=== PATIENT | female | born 1970 | race Two or more races ===

== ENCOUNTER 2017-02-17 07:37 | Observation (INO) | payer OTHER, SELFPAY ==
--- NOTE | ~2017-02-17 | TH ---
Unit #: [id number] #: [id number] Patient: HOWIE BOTELLO [id number] [facility]. [address] [address] [id number] I MR#: [id number] NAME: HOWIE BOTELLO : 1970 SEX: F STUDY DATE/TIME: 02/17/2017 UNIT: C3A PCU ROOM: 310 STUDY DESCRIPTION: Exercise stress test - Nuclear Attending Physician: Sabrina Cordero M.D. Referring Physician: Denzel Caldera M.D. Primary Care Physician: No Primary Care Physician CARDIOLOGY REPORT PROCEDURE PERFORMED Exercise Cardiolite stress test - Nuclear portion. PROCEDURE Using technetium 99m-labeled Cardiolite, rest and stress SPECT images were obtained. Multiple SPECT images were obtained in various views, including horizontal and vertical long axis and short axis views of the left ventricle. Images were obtained by gated SPECT method. The patient was administered 11.63 mCi of Cardiolite at rest. The patient was administered 35.8 mCi of Cardiolite at peak exercise. Total exercise time is 7 minutes and 20 seconds of modified Phil protocol. On the stress images, there is a large area of severely decreased tracer uptake activity involving the entire anterior, anteroseptal and anteroapical wall of the left ventricle. The rest images show a smaller area of moderately decreased tracer uptake activity involving the anterior and the anteroapical wall. Comparing the rest and stress images, there is suspicion for a medium to large sized area of myocardial infarction involving the anterior, anteroapical and anteroseptal wall with significant juanito-infarct ischemia. The left ventricular ejection fraction is calculated to be 61%. There is anterior wall hypokinesis seen. CONCLUSION 1. Suspicion for a medium sized area of anterior, anteroapical and anteroseptal myocardial infarction with significant juanito-infarct ischemia. 2. The left ventricular ejection fraction is calculated to be 61%. 3. There is anterior wall hypokinesis seen. 4. Abnormal exercise Cardiolite stress test highly suspicious for coronary artery disease. Clinical correlation is requested. Dictated by... Raul Marr/magda TD: 02/17/2017 13:44 JOB #: [id number] Unit #: [id number] #: [id number] Patient: HOWIE BOTELLO CARDIOLOGY REPORT Page 1 of 1 X Sabrina Cordero MD <ELECTRONICALLY SIGNED> 04/01/17 1427 CARDIOLOGY REPORT
--- NOTE | ~2017-02-17 | ST ---
Unit #: [id number] #: [id number] Patient: HOWIE BOTELLO [id number] [address] [address] [id number] O MR#: [id number] NAME: HOWIE BOTELLO : 1970 SEX: F STUDY DATE/TIME: 02/17/2017 UNIT: [facility] ROOM: STUDY DESCRIPTION: Exercise stress test Attending Physician: Denzel Caldera M.D. Referring Physician: Denzel Caldera M.D. Primary Care Physician: Denzel Caldera M.D. CARDIOLOGY REPORT STUDY PERFORMED EKG portion of Cardiolite exercise stress test. REASON FOR STUDY Intermittent chest pain with shortness of air. PROCEDURE Baseline EKG is sinus rhythm with a ventricular rate of 72 and nonspecific T wave abnormalities in V1. The patient exercised on the treadmill according to the Phil protocol for 7 minutes and 20 seconds achieving a work level of 8.6 METS. Resting heart rate was 77. Maximal heart rate was 153, representing 88% of max predicted heart rate. The patient's symptom during the test was fatigue. No arrhythmias were noted. There was some flattening of the T wave in AVL. The test had to be modified around the 5-minute marcus due to extreme fatigue. IMPRESSION 1. This is a negative test. 2. The patient had no complaints of chest pain, palpitations or dizziness. Had increased shortness of breath and fatigue. 3. No arrhythmias; some nonspecific T wave changes. 4. Please correlate with Cardiolite imaging. Dictated by... Luda Finney APRN for Raul Marr TD: 02/17/2017 10:59 JOB #: [id number] Unit #: [id number] #: [id number] Patient: HOWIE BOTELLO CARDIOLOGY REPORT Page 1 of 1 X CARDIOLOGY REPORT
--- NOTE | ~2017-02-17 | HP ---
Unit #: [id number] #: [id number] Patient: HOWIE BOTELLO [id number] [address] [address] [id number] I MR#: [id number] NAME: HOWIE BOTELLO ROOM: 310 Age: 46 Sex: F Admission Date: 02/17/2017 : 1970 Attending Physician: Sabrina Cordero M.D. Referring Physician: Denzel Caldera M.D. Primary Care Physician: No Primary Care Physician HISTORY AND PHYSICAL REASON FOR ADMISSION Abnormal stress test. HISTORY OF PRESENT ILLNESS This is a 46-year-old [place] female who speaks limited Divehi. History obtained through her son and assistant professor of nursing services. She has a prior history of hypertension, high cholesterol, type 2 diabetes, and an anterior STEMI in February 2016. At that time, she had a cardiac cath which showed LAD mid 100% occluded, left circumflex diffuse irregularities, RCA diffuse irregularities, and PDA was small with diffuse disease. She underwent a PCI and Synergy drug-eluting stent to her LAD at that time. She also has a prior history of ischemia cardiomyopathy with a left ventricular ejection fraction of 40% per echo done February 27, 2016. She was evaluated at [facility] January 27 for chest pressure and shortness of air that occurred while gardening. At that visit, her EKG showed no ischemic changes and her troponins were normal. She elected to be discharged home and proceed with outpatient testing. Today, she presented to [facility] for a cardiac exercise stress test. She became fatigued during the test but had no chest pain, pressure or tightness. Cardiolite imaging was markedly abnormal. She was admitted with plans to further evaluate with a left heart catheterization. She currently denies chest pain, shortness of air or palpitations. PAST MEDICAL HISTORY 1. Diabetes mellitus type 2. 2. Hypertension. 3. Hyperlipidemia. 4. History of anterior STEMI February 27, 2016. 5. Cardiac cath 02/2016 showed left main normal, LAD mid 100%, left circumflex diffuse irregularities, right coronary artery diffuse irregularities and PDA small and diffusely diseased, status post PCI and drug-eluting stent to LAD. 6. History of ischemic cardiomyopathy with EF 40% per echo February 27, 2016. 7. Echocardiogram 01/28/2017 showed LVEF 70% and trace mitral regurg. PAST SURGICAL HISTORY Cardiac catheterization, PCI and stents as noted above. HOME MEDICATIONS 1. Effient 10 mg p.o. daily. 2. Lisinopril 10 mg p.o. twice a day. 3. Coreg 6.25 mg twice a day. Unit #: [id number] #: [id number] Patient: HOWIE BOTELLO 4. Aspirin 81 mg once a day. 5. Atorvastatin 40 mg every hour sleep. 6. Metformin 500 mg twice a day. 7. Nitroglycerin sublingual 0.4 mg as needed for chest pain. ALLERGIES No known drug allergies. SOCIAL HISTORY This is a [place] woman who is here with her son who speaks Divehi. She denies a history of smoking. Denies alcohol or illicit drug use. FAMILY HISTORY Denies a family history of premature coronary artery disease. REVIEW OF SYSTEMS Ten point review of systems is negative except for details as noted above. PHYSICAL EXAMINATION VITAL SIGNS: Not available at this time. GENERAL: Alert and oriented 46-year-old female resting in bed, in no acute distress. SKIN: Warm and dry. NECK: Supple. No jugular venous distention. No hepatojugular reflex. Normal carotid upstrokes. No carotid bruits auscultation. HEART: S1 and S2. Regular rate and rhythm. No murmurs, rubs or gallops. LUNGS: Bilateral breath sounds are clear. No rales, rhonchi or wheezes. ABDOMEN: Soft, nontender, nondistended. Positive bowel sounds. No ascites noted. EXTREMITIES: Bilateral lower extremities have no pretibial pitting edema. DP and PT pulses are 2+. Capillary refill is less than two seconds. DIAGNOSTIC STUDIES LABORATORY: CMP and CBC are pending. BMP done 01/28/2017 showed a sodium of 136, potassium 3.6, BUN 6, creatinine 0.63, glucose 163. CBC done January 28, 2017, showed hemoglobin 10.7 and hematocrit 32.6. CARDIOVASCULAR: EKG with normal sinus rhythm and nonspecific T wave abnormalities. Cardiolite imaging - please see dictated report. ASSESSMENT 1. Mild anterior apical myocardial infarction. 2. History of ischemic cardiomyopathy with ejection fraction 40% per echo 02/27/2016 and now left ventricular ejection fraction 70% per echo 01/28/2017. 3. Two vessel coronary artery disease, status post percutaneous coronary intervention/drug-eluting stent to left anterior descending in February 2016. 4. Diabetes mellitus. 5. Hypertension. 6. Hyperlipidemia. 7. Abnormal Cardiolite stress test. Unit #: [id number] #: [id number] Patient: HOWIE BOTELLO PLAN 1. Proceed with cardiac cath. 2. Continue beta yuly with Coreg 1.5 mg p.o. twice a day. 3. Increase lisinopril to 40 mg p.o. every hour of sleep. 4. Effient 10 mg p.o. daily. 5. Add nitrate with Imdur 30 mg p.o. daily. 6. Continue aspirin. 7. Add Lasix 40 mg p.o. daily. 8. Lipitor 80 mg p.o. daily. 9. NPO per cardiac cath. 10. CBC, BMP, PT, INR, PTT and troponin. 11. The patient is a full code. 12. Pre-cath orders with consent for left heart cath. Dictated by Luda Finney APRN for Raul Sorto/ramin TD: 02/21/2017 10:30 JOB #: [id number] HISTORY AND PHYSICAL Page 1 of 1 X X HISTORY AND PHYSICAL
--- NOTE | ~2017-02-17 | DS ---
Unit #: [id number] #: [id number] Patient: HOWIE BOTELLO [id number] [address] [place], [place] [address] [id number] I MR#: [id number] NAME: HOWIE BOTELLO ROOM: 310 Age: 46 Sex: F Admission Date: 02/17/2017 : 1970 Discharge Date: 02/18/2017 Attending Physician: Sabrina Cordero M.D. Referring Physician: Denzel Caldera M.D. Primary Care Physician: No Primary Care Physician DISCHARGE SUMMARY HOSPITAL COURSE Ms. Botello is a 46-year-old female of [place] origin, who is known to have hypertension and diabetes mellitus. She had suffered an acute anterior wall myocardial infarction in 02/2016 when she was treated at [facility] with an emergent angioplasty with stent insertion on the mid LAD. Over the last few months she had complained of chest tightness and shortness of breath on exertion and at rest. An exercise Cardiolite scan was performed yesterday morning at this hospital, which revealed a large area of anterior wall juanito-infarction ischemia and inferior wall ischemia. She was admitted to the hospital for cardiac catheterization. The patient was taken to the cardiac catheterization lab, where catheterization revealed left ventricular systolic function to be normal, left main coronary artery was normal, left circumflex coronary artery was essentially normal, first and second marginal branches were normal, third marginal branch showed diffuse irregularity. Left anterior descending artery showed 99% in-stent stenosis and the first diagonal branch of the LAD was caught in stent longterm with about 90% stenosis at its ostium, with the distal vessel being normal. LAD also had another 70% stenosis in the distal one-third. Right coronary artery showed 30%-40% stenosis at the junction of the proximal third and distal two-thirds. The patient was started on long-acting nitrates. The dose of Lipitor and carvedilol was increased and the patient is being discharged home today. She will be brought back on an elective basis in the middle of the week and a PCI with stent insertion would be performed on the mid LAD stenosis, possibly on the distal LAD also, and first diagonal branch of the LAD would be dilated if possible with a balloon only. This was discussed at length with the patient's and the patient and they are agreeable to this approach. She is being discharged home on the following medicines. DISCHARGE MEDICATIONS 1. Carvedilol 6.25 mg, 2 tablets b.i.d. or 12.5 mg b.i.d. 2. Atorvastatin 40 mg, 2 tablets daily at bedtime or 80 mg p.o. at bedtime. 3. Lisinopril 10 mg tablets, 2 tablets b.i.d., or 40 mg at bedtime. 4. Metformin 500 mg b.i.d. 5. Januvia 100 mg p.o. daily. 6. P.r.n. nitroglycerin. 7. Ferrous sulfate 325 mg daily. 8. Aspirin 81 mg daily. 9. Effient 10 mg daily. 10. Imdur 30 mg daily. Unit #: [id number] #: [id number] Patient: HOWIE BOTELLO 11. Nitrostat 0.4 mg p.r.n. chest pain. 12. Vitamin D 1000 units daily. 13. Vitamin B12 500 mcg daily. PLAN The patient will be readmitted on 02/22/2017 for PCI with stent insertion on the left anterior descending artery and possible diagonal branch of the LAD. DIAGNOSES 1. Rest and exertional angina pectoris. 2. In-stent stenosis LAD. 3. Three vessel coronary artery disease. 4. Diabetes mellitus, noninsulin dependent. 5. Old anterior wall myocardial infarction in 2016 with emergent PCI with stent insertion on the mid LAD, performed at [facility]. Dictated by... Raul Sorto TD: 02/20/2017 11:59 JOB #: [id number] DISCHARGE SUMMARY Page 1 of 1 X Anthony Menard MD X DISCHARGE SUMMARY
[2017-02-17] MEDS ORDERED: VITAMIN D1000 UNIT PO (13:53)
[2017-02-17] MEDS ORDERED: ST. JOSEPH ASPI81 M2 PO (13:53)
[2017-02-17] MEDS ORDERED: FERROUS SULFATE PO (13:54)
[2017-02-17] MEDS ORDERED: ATORVASTATIN CA10 MG PO (13:56)
[2017-02-17] MEDS ORDERED: LYRICA PO (13:56)
[2017-02-17] MEDS ORDERED: LISINOPRIL10 MG PO (13:57)
[2017-02-17] MEDS ORDERED: JANUVIA100 MG PO (13:59)
[2017-02-17] MEDS ORDERED: METFORMIN HCL500 M4 PO (13:59)
[2017-02-17] MEDS ORDERED: EFFIENT10 MG PO (14:00)
[2017-02-17] MEDS ORDERED: NITROSTAT0.4 MG SL (14:01)
[2017-02-17] MEDS ORDERED: COREG6.25 MG PO (14:02)
[2017-02-17] MEDS ORDERED: B-12500 MCG PO (14:02)
[2017-02-17 15:57] LABS: BASOPHIL% 0.4 % (0-2.5); EOSINOPHIL% 0.6 % (0.0-7.0); HEMATOCRIT 36.5 % (35.0-45.0); HEMOGLOBIN 11.7 gm/dL (12.0-16.0); LYMPHOCYTE# 1.8 X10e3 (1.0-3.5); LYMPHOCYTE% 24.2 % (17.0-45.0); MEAN CELL VOLUME 78.7 FL (83-96); MEAN CORPUSCULAR HEMOGLOBIN 25.3 PG (28-34); MEAN CORPUSCULAR HGB CONC 32.2 g/dL (30-36); MEAN PLATELET VOLUME 8.5 FL (6.5-11.5); MONOCYTE# 0.4 X10e3 (0-1.0); MONOCYTE% 5.1 % (3.0-12.0); NEUTROPHIL# 5.2 X10e3 (1.5-7.1); NEUTROPHIL% 69.7 % (40-75); PLATELET COUNT 214 X10e3 (140-420); RED BLOOD COUNT 4.64 X10e (3.90-5.30); RED CELL DISTRIBUTION WIDTH 16.7 % (11.0-15.5); WHITE BLOOD COUNT 7.4 X10e3 (4.0-10.5)
[2017-02-17 16:03] LABS: PROTHROMBIN TIME (PATIENT) 10.7 SECONDS (9.6-11.5)
[2017-02-17 16:12] LABS: DIFF IND NO
[2017-02-17 16:15] LABS: PARTIAL THROMBOPLASTIN TIME 30.1 SECONDS (23.5-31.3); PROTHROMBIN TIME (PATIENT) 10.8 SECONDS (9.6-11.5)
[2017-02-17 16:22] LABS: CALCIUM SERUM 8.7 mg/dL (8.4-10.2); CREATININE SERUM 0.5 mg/dL (0.6-1.4); GLOM FILT RATE Estimated 115.3 mL/min (>60); POTASSIUM 3.7 mmol/L (3.5-5.1)
[2017-02-18 06:25] LABS: HEMATOCRIT 32.8 % (35.0-45.0); HEMOGLOBIN 10.7 gm/dL (12.0-16.0); MEAN CELL VOLUME 78.8 FL (83-96); MEAN CORPUSCULAR HEMOGLOBIN 25.7 PG (28-34); MEAN CORPUSCULAR HGB CONC 32.6 g/dL (30-36); MEAN PLATELET VOLUME 8.6 FL (6.5-11.5); RED BLOOD COUNT 4.16 X10e (3.90-5.30); RED CELL DISTRIBUTION WIDTH 16.9 % (11.0-15.5); WHITE BLOOD COUNT 6.7 X10e3 (4.0-10.5)
[2017-02-18 06:56] LABS: CALCIUM SERUM 8.3 mg/dL (8.4-10.2); CREATININE SERUM 0.4 mg/dL (0.6-1.4); GLOM FILT RATE Estimated 124.1 mL/min (>60); POTASSIUM 3.5 mmol/L (3.5-5.1)
[2017-02-18] MEDS ORDERED: IMDUR-ER30 M1 DOB (10:16)
[2017-02-18] MEDS ORDERED: IMDUR-ER30 M2 PO (10:37)
[2017-02-18] MEDS ORDERED: COREG6.25 MG PO (10:38)
[2017-02-18] MEDS ORDERED: ATORVASTATIN CA40 MG PO (10:39)
[2017-02-18] MEDS ORDERED: PRINIVIL10 MG PO (10:40)
== END 2017-02-18 11:20 | disposition home or self-care (01) | DRG 316 ==
LOC: CNUC 07:37 → CEDOF 12:30 → C3A PCU 12:35 → CNUC 12:35 → C3A PCU 13:25 → CEDOF 13:25 → C3A PCU 02-18 11:20
PROVIDERS: Internal Medicine Cardiovascular Disease; Nurse Practitioner Family
DX: T82.855A Stenosis of coronary artery stent, initial encounter (principal); I25.118 Atherosclerotic heart disease of native coronary artery with other forms of angina pectoris; T82.897A Other specified complication of cardiac prosthetic devices, implants and grafts, initial encounter; I25.2 Old myocardial infarction; R94.39 Abnormal result of other cardiovascular function study; E11.9 Type 2 diabetes mellitus without complications; Z79.84 Long term (current) use of oral hypoglycemic drugs; Z95.5 Presence of coronary angioplasty implant and graft
CPT/HCPCS: 78452; 80048; 82947; 84484; 85025; 85027; 85610; 85730; 93017; A9500; C1769; C1887; C1894; G0378; J1644; J2250; J3010

== ENCOUNTER 2017-02-21 06:08 | Observation (INO) | payer OTHER ==
--- NOTE | ~2017-02-21 | DS ---
Unit #: [id number] #: [id number] Patient: HOWIE BOTELLO [id number] [address] [address] [id number] I MR#: [id number] NAME: HOWIE BOTELLO ROOM: 564 Age: 46 Sex: F Admission Date: 02/21/2017 : 1970 Discharge Date: 02/22/2017 Attending Physician: Anthony Menard M.D. Referring Physician: Anthony Menard M.D. Primary Care Physician: Elian Bone DISCHARGE SUMMARY DISCHARGE DIAGNOSES 1. Abnormal exercise Cardiolite stress test, February 17, 2017, which showed a suspicion for a medium-sized area of anterior, anteroapical, and anteroseptal myocardial infarction with significant juanito-infarct ischemia. Ejection fraction of 61%. 2. Cardiac catheterization, February 17, 2017, per Dr. Menard at [facility] that revealed left main normal. Circumflex artery essentially normal. First and second marginal branches normal. Marginal branch showed diffuse disease. Left anterior descending 99% in-stent stenosis. First diagonal branch of the left anterior descending caught in stent halfway with 90% stenosis at its origin. Left anterior descending had another 70% stenosis in the distal one third. Right coronary artery 30% to 40% at the junction of the proximal third and distal two thirds. Normal left ventricular systolic function. 3. Status post percutaneous coronary intervention with drug-eluting stent to the 99% in-stent stenosis to the mid left anterior descending with plain old balloon angioplasty to the 99% ostial stenosis of the first diagonal branch, February 21, 2017. 4. Previous anterior wall ST elevation myocardial infarction, February 27, 2016, status post percutaneous coronary intervention with drug-eluting stent to the mid left anterior descending. 5. Ischemic cardiomyopathy with an ejection fraction of 40% per echo February 2016, improved to 70% per echocardiogram, January 28, 2017. 6. Hypertension. 7. Hyperlipidemia. 8. Diabetes mellitus type 2. 9. Nonsmoker. DISCHARGE MEDICATIONS 1. Lyrica 100 mg t.i.d. 2. Metformin 500 mg b.i.d. 3. Januvia 100 mg daily. 4. Atorvastatin 80 mg nightly. 5. Carvedilol 12.5 mg b.i.d. 6. Prinivil 20 mg b.i.d. 7. Ferrous sulfate 325 mg daily. 8. Aspirin 81 mg daily. 9. Effient 10 mg daily. 10. Imdur 30 mg daily. 11. Nitrostat 0.4 mg sublingual p.r.n. chest pain. 12. Vitamin D 1000 units daily. 13. Vitamin B12 at 500 mcg daily. Unit #: [id number] #: [id number] Patient: [facility] COURSE This is a 46[facility], who originated with a complaint of shortness of breath and chest pain that occurred on exertion. She underwent exercise Cardiolite stress test which was abnormal finding a significant juanito-infarct ischemia to the anteroapical and anteroseptal wall with suspicion for myocardial infarction. The first diagonal branch was caught in halfway and had 90% stenosis. There was another area of 70% stenosis in the distal one third of the LAD. Right coronary artery had nonobstructive disease. Circumflex artery essentially normal. The patient was started on long-acting nitrates, high-intensity statin with Lipitor 80 mg and carvedilol. She returns for elective PCI of the LAD and first diagonal stenosis. There was successful deployment of a 2.75 x 28 mm Xience (1) stent to the in-stent stenosis of the mid LAD of 99%. The stenosis was reduced to zero percent after post dilation, up to 3.04. The first diagonal branch 99% ostial stenosis was reduced using noncompliant balloon up to 2.6 mm. The distal LAD was not dilated. The patient did well in the post recovery phase. She had no arrhythmias or electrocardiogram changes. MB index 1.5. Her blood pressure remained stable. Right groin healing well. No recurrent chest pain or shortness of breath. She is stable for discharge today. PHYSICAL EXAMINATION VITAL SIGNS: Blood pressure 101/70, heart rate 66, temperature 98.1. CHEST: Clear to auscultation. HEART: S1, S2 heart sounds are normal. No murmurs. No rubs. No clicks. ABDOMEN: Soft, nontender with bowel sounds present. EXTREMITIES: Without leg edema. Right groin healing well with no bruits. No hematoma or bruising. DIAGNOSTIC STUDIES LABORATORY: Glucose 104, BUN 17, creatinine 0.9, sodium 135, potassium 4.1. CK total 67, MB 1.5, MB index 2.2. Cholesterol 87, triglycerides 69, LDL 41, HDL 32. White count 5.9, hemoglobin 10.3, hematocrit 31.3, platelet count 189,000. CARDIOVASCULAR: Electrocardiogram: Normal sinus rhythm with a rate of 73 beats per minute with old inferior infarct with Q waves noted in III and aVF. DISCHARGE INSTRUCTIONS 1. The patient will be discharged home today. 2. Followup with Dr. Menard on May 02 at 2 p.m. 3. Cardiac rehab was consulted and the patient was given information. She was unsure about transportation and work issues. They are scheduled to follow up with the patient after discharge. 4. Continue on dual-antiplatelet therapy with aspirin and Effient. On nitrates, beta yuly, statin, and DESTINY inhibitor. Dictated by... Saúl Varela A.P.R.N. for Raul Sorto/tessa TD: 02/23/2017 12:23 Unit #: [id number] #: [id number] Patient: HOWIE BOTELLO JOB #: [id number] DISCHARGE SUMMARY Page 1 of 1 X Saúl Varela APRN X DISCHARGE SUMMARY
--- NOTE | ~2017-02-21 | EKG ---
PATIENT: HOWIE BOTELLO UNIT #: [id number] Ventricular Rate: 74 BPM Atrial Rate: 74 BPM P-R Interval: 168 ms QRS Duration: 80 ms Q-T Interval: 380 ms QTC Calculation(Bezet): 421 ms P [place]: -3 degrees Calculated R [place]: -13 degrees Calculated T [place]: 41 degrees Diagnosis Line: Normal sinus rhythm Diagnosis Line: Normal ECG Diagnosis Line: When compared with ECG of 17-FEB-2017 09:37, Diagnosis Line: No significant change was found Diagnosis Line: Confirmed by SHAE TURCIOS MD ([id number]) on Diagnosis Line: 02/21/2017 9:21:11 PM INTERPRETING MD: LUCINA
--- NOTE | ~2017-02-21 | EKG ---
PATIENT: HOWIE BOTELLO UNIT #: [id number] Ventricular Rate: 73 BPM Atrial Rate: 73 BPM P-R Interval: 170 ms QRS Duration: 74 ms Q-T Interval: 398 ms QTC Calculation(Bezet): 438 ms P [place]: 17 degrees Calculated R [place]: -11 degrees Calculated T [place]: 29 degrees Diagnosis Line: Normal sinus rhythm Diagnosis Line: Inferior infarct (cited on or before 21-FEB-2017) Diagnosis Line: Abnormal ECG Diagnosis Line: When compared with ECG of 21-FEB-2017 13:16, Diagnosis Line: (unconfirmed) Diagnosis Line: No significant change was found Diagnosis Line: Confirmed by PIERRE MADRID MD ([id number]) on 02/22/2017 Diagnosis Line: 7:45:39 AM INTERPRETING MD: MERCY ANTHONY
--- NOTE | ~2017-02-21 | EKG ---
PATIENT: HOWIE BOTELLO UNIT #: [id number] Ventricular Rate: 71 BPM Atrial Rate: 71 BPM P-R Interval: 170 ms QRS Duration: 72 ms Q-T Interval: 396 ms QTC Calculation(Bezet): 430 ms P [place]: -12 degrees Calculated R [place]: -10 degrees Calculated T [place]: 32 degrees Diagnosis Line: Normal sinus rhythm Diagnosis Line: Inferior infarct (cited on or before 17-FEB-2017) Diagnosis Line: Abnormal ECG Diagnosis Line: When compared with ECG of 21-FEB-2017 10:41, Diagnosis Line: (unconfirmed) Diagnosis Line: No significant change was found Diagnosis Line: Confirmed by PIERRE MADRID MD ([id number]) on 02/22/2017 Diagnosis Line: 7:34:19 AM INTERPRETING MD: MERCY ANTHONY
--- NOTE | ~2017-02-21 | EKG ---
PATIENT: HOWIE BOTELLO UNIT #: [id number] Ventricular Rate: 68 BPM Atrial Rate: 68 BPM P-R Interval: 176 ms QRS Duration: 76 ms Q-T Interval: 394 ms QTC Calculation(Bezet): 418 ms P [place]: -1 degrees Calculated R [place]: -7 degrees Calculated T [place]: 33 degrees Diagnosis Line: Normal sinus rhythm Diagnosis Line: Inferior infarct (cited on or before 17-FEB-2017) Diagnosis Line: Abnormal ECG Diagnosis Line: When compared with ECG of 21-FEB-2017 08:05, Diagnosis Line: (unconfirmed) Diagnosis Line: No significant change was found Diagnosis Line: Confirmed by PIERRE MADRID MD ([id number]) on 02/22/2017 Diagnosis Line: 7:30:59 AM INTERPRETING MD: MERCY ANTHONY
[~2017-02-21 06:08] MED LIST: ATORVASTATIN CA10 MG PO; ATORVASTATIN CA40 MG PO; B-12500 MCG PO; COREG6.25 MG PO; EFFIENT10 MG PO; FERROUS SULFATE PO; IMDUR-ER30 M1 DOB; IMDUR-ER30 M2 PO; JANUVIA100 MG PO; LISINOPRIL10 MG PO; LYRICA PO; METFORMIN HCL500 M4 PO; NITROSTAT0.4 MG SL; PRINIVIL10 MG PO; ST. JOSEPH ASPI81 M2 PO; VITAMIN D1000 UNIT PO
[2017-02-21 07:44] LABS: HEMATOCRIT 38.4 % (35.0-45.0); HEMOGLOBIN 12.6 gm/dL (12.0-16.0); MEAN CELL VOLUME 79.2 FL (83-96); MEAN CORPUSCULAR HEMOGLOBIN 25.9 PG (28-34); MEAN CORPUSCULAR HGB CONC 32.7 g/dL (30-36); RED BLOOD COUNT 4.85 X10e (3.90-5.30); RED CELL DISTRIBUTION WIDTH 16.7 % (11.0-15.5); WHITE BLOOD COUNT 8.7 X10e3 (4.0-10.5)
[2017-02-21 08:07] LABS: PARTIAL THROMBOPLASTIN TIME 30.2 SECONDS (23.5-31.3); PROTHROMBIN TIME (PATIENT) 10.6 SECONDS (9.6-11.5)
[2017-02-21 08:10] LABS: CALCIUM SERUM 9.3 mg/dL (8.4-10.2); CREATININE SERUM 0.7 mg/dL (0.6-1.4); GLOM FILT RATE Estimated 103.2 mL/min (>60); POTASSIUM 4.7 mmol/L (3.5-5.1)
[2017-02-21 19:49] LABS: ANGIO %MB 1.7 % (0.0-4.0); ANGIO MB 1.3 ng/ml
[2017-02-22 03:11] LABS: HEMATOCRIT 31.9 % (35.0-45.0); MEAN CELL VOLUME 79.3 FL (83-96); MEAN CORPUSCULAR HEMOGLOBIN 25.7 PG (28-34); MEAN CORPUSCULAR HGB CONC 32.4 g/dL (30-36); MEAN PLATELET VOLUME 8.4 FL (6.5-11.5); RED BLOOD COUNT 4.02 X10e (3.90-5.30); RED CELL DISTRIBUTION WIDTH 16.8 % (11.0-15.5); WHITE BLOOD COUNT 5.9 X10e3 (4.0-10.5)
[2017-02-22 03:19] LABS: HEMOGLOBIN 10.3 gm/dL (12.0-16.0)
[2017-02-22 03:33] LABS: BUN/CREATININE RATIO 18.88; CALCIUM SERUM 8.5 mg/dL (8.4-10.2); CREATININE SERUM 0.9 mg/dL (0.6-1.4); GLOM FILT RATE Estimated 76.2 mL/min (>60); POTASSIUM 4.1 mmol/L (3.5-5.1)
[2017-02-22 03:48] LABS: CHOLESTEROL 87 mg/dL (0-200); HDL CHOLESTEROL 32 mg/dL (35-95); LDL CHOLESTEROL 41 mg/dL (-130); LDL/HDL RATIO 1 RATIO (0-4); TRIGLYCERIDES 69 mg/dL (10-160)
[2017-02-22 03:49] LABS: ANGIO %MB 2.2 % (0.0-4.0); ANGIO MB 1.5 ng/ml
== END 2017-02-22 14:57 | disposition home or self-care (01) | DRG 315 ==
LOC: CCVL 06:08 → CSSDAY 06:08 → CCVL 08:00 → C5C 10:00 → CCVL 10:31 → C5C 02-22 14:57
PROVIDERS: Internal Medicine Cardiovascular Disease
DX: T82.855A Stenosis of coronary artery stent, initial encounter (principal); I25.110 Atherosclerotic heart disease of native coronary artery with unstable angina pectoris; E11.9 Type 2 diabetes mellitus without complications; I25.2 Old myocardial infarction; I10 Essential (primary) hypertension; I25.5 Ischemic cardiomyopathy; R94.39 Abnormal result of other cardiovascular function study; Z79.02 Long term (current) use of antithrombotics/antiplatelets; Z79.84 Long term (current) use of oral hypoglycemic drugs; Z79.82 Long term (current) use of aspirin; E78.5 Hyperlipidemia, unspecified
CPT/HCPCS: 92921; C9600; 36415; 80048; 80061; 82550; 82553; 82947; 84703; 85027; 85347; 85610; 85730; 93005; C1769; C1874; C1894; G0378; J0461; J1644; J2250; J2270; J2405; J3010